=== PATIENT | female | born 1995 | race Caucasian/White ===

== ENCOUNTER 2022-12-11 09:43 | Emergency (ER) | payer SELFPAY ==
[~2022-12-11] VITALS: Ht 167.6 cm; Wt 62.1 kg
[2022-12-11 09:54] VITALS: BP 109/82
--- NOTE | 2022-12-11 10:05 | NUR ---
Dima ricci in [facility] - 12/11/22 at 1038 by AZIZA PATIENT AMBULATED TO BED 6.
--- NOTE | 2022-12-11 10:05 | NUR ---
PT WHEELCHAIR ASSISTED TO BED 6
--- NOTE | 2022-12-11 10:10 | NUR ---
89YO FEMALE PT C/O N/V-blood AND BURNING EPIGASTRIC PAIN XLASTNIGHT. REPORTS SUDDEN ONSET AND DIARRHEA/CHILLS XTODAY. PT CURRENTLY 6WEEKS , A1. JOSE 07/31/23 LMP 10/24/22. DENIES , FEVER , SOB OR VAGINAL BLEEDING. PT AAOX4, HOB POSITIONED PER COMFORT HX: DNIES NKA
--- NOTE | 2022-12-11 10:38 | NUR ---
DR. ALMONTE EVALUATING PATIENT AT BEDSIDE.
[2022-12-11] MEDS ORDERED: NACL 0.9% 1,000 ML IV ONE (10:40)
[2022-12-11] MEDS ORDERED: ONDANSETRON 4 MG/2 ML VIAL IVP ONE (10:40)
--- NOTE | 2022-12-11 11:08 | NUR ---
Additional dose of zofran pulled d/t broken vial.
[2022-12-11 11:19] LABS: BASOPHILS % (AUTO) 0.2 % (0.0-2.0); EOSINOPHILS % (AUTO) 0.1 % (0.0-4.0); HEMATOCRIT 41.4 % (36-48); HEMOGLOBIN 14.1 g/dL (12.0-16.0); LYMPHOCYTES # (AUTO) 1.4 K/uL (2.5-16.5); LYMPHOCYTES % (AUTO) 9.8 % (20.5-51.1); MEAN CORPUSCULAR HEMOGLOBIN 30 pg (27-31); MEAN CORPUSCULAR HGB CONC 34 g/dL (33-37); MEAN CORPUSCULAR VOLUME 88.3 fL (80-94); MONOCYTES # (AUTO) 0.5 K/uL (0.8-1.0); MONOCYTES % (AUTO) 3.2 % (1.7-9.3); NEUTROPHILS # (AUTO) 12.4 K/uL (1.8-7.7); NEUTROPHILS % (AUTO) 86.7 % (42.2-75.2); PLATELET COUNT (AUTO) 256 K/uL (140-450); RED BLOOD CELL COUNT(AUTO) 4.69 MIL/uL (4.20-5.40); RED CELL DISTRIBUTION WIDTH 12.9 % (11.6-13.7); WHITE BLOOD COUNT (AUTO) 14.3 K/uL (4.8-10.8)
--- NOTE | 2022-12-11 11:25 | NUR ---
pt w/ new nausea onset. MADE AWARE
[2022-12-11 11:47] LABS: ALBUMIN 4.7 g/dL (3.4-5.0); ANION GAP 15.9 (8-16); CARBON DIOXIDE 23.2 mmol/L (21-32); POTASSIUM 3.1 mmol/L (3.5-5.1); TOTAL BILIRUBIN 0.7 mg/dL (0.0-1.0)
[2022-12-11] MEDS ORDERED: PROCHLORPERAZINE 10 MG/2 ML VIAL IVP ONE (12:00)
[2022-12-11] MEDS ORDERED: COM25S RC (12:56)
[2022-12-11 13:31] VITALS: BP 110/57
--- NOTE | 2022-12-11 13:31 | NUR ---
Patient discharged with v/s stable. Written and verbal after care instructions given and explained. Patient alert, oriented and verbalized understanding of instructions. Ambulatory with steady gait. All questions addressed prior to discharge. ID band removed. Patient advised to follow up with PMD. Rx of COMPAZINE (SENT) given. Patient educated on indication of medication including possible reaction and side effects. Opportunity to ask questions provided and answered.
--- NOTE | 2022-12-11 13:32 | NUR ---
The patient's care was reviewed and supervised by Pema Hammond, RN, RN.
--- NOTE | 2022-12-11 13:41 | NUR ---
IV removed, catheter intact and site benign. Applied folded 4x4 gauze and tape to stop bleeding. BOYFRIEND WILL BE TAKING PT HOME AT THIS TIME
== END 2022-12-11 13:31 | disposition home or self-care (01) ==
LOC: MED 09:43
DX: O21.0 Mild hyperemesis gravidarum (principal); Z79.899 Other long term (current) drug therapy; Z3A.01 Less than 8 weeks gestation of pregnancy
CPT/HCPCS: 36415; 80053; 81025; 85025; 96361; 96374; 96375; 99284; J0780; J2405; J7030

== ENCOUNTER 2022-12-18 07:38 | Emergency (ER) | payer SELFPAY ==
[~2022-12-18] VITALS: Ht 15.2 cm; Wt 62.1 kg
[~2022-12-18 07:38] MED LIST: COM25S RC
[2022-12-18 07:43] VITALS: BP 139/67
[2022-12-18] MEDS ORDERED: ONDANSETRON 4 MG/2 ML VIAL IVP ONE ×2 (08:00→08:05)
[2022-12-18 08:41] LABS: BASOPHILS % (AUTO) 0.2 % (0.0-2.0); EOSINOPHILS % (AUTO) 0.1 % (0.0-4.0); HEMATOCRIT 38.9 % (36-48); HEMOGLOBIN 13.6 g/dL (12.0-16.0); LYMPHOCYTES # (AUTO) 1.8 K/uL (2.5-16.5); LYMPHOCYTES % (AUTO) 17.5 % (20.5-51.1); MEAN CORPUSCULAR HEMOGLOBIN 31 pg (27-31); MEAN CORPUSCULAR HGB CONC 35 g/dL (33-37); MEAN CORPUSCULAR VOLUME 88.1 fL (80-94); MONOCYTES # (AUTO) 0.6 K/uL (0.8-1.0); MONOCYTES % (AUTO) 5.4 % (1.7-9.3); NEUTROPHILS # (AUTO) 8.1 K/uL (1.8-7.7); NEUTROPHILS % (AUTO) 76.8 % (42.2-75.2); PLATELET COUNT (AUTO) 255 K/uL (140-450); RED BLOOD CELL COUNT(AUTO) 4.42 MIL/uL (4.20-5.40); RED CELL DISTRIBUTION WIDTH 12.9 % (11.6-13.7); WHITE BLOOD COUNT (AUTO) 10.5 K/uL (4.8-10.8)
[2022-12-18 09:33] LABS: ALBUMIN 4.5 g/dL (3.4-5.0); ANION GAP 13.2 (8-16); CARBON DIOXIDE 25.2 mmol/L (21-32); CREATININE 0.8 mg/dL (0.6-1.3); POTASSIUM 3.4 mmol/L (3.5-5.1); TOTAL BILIRUBIN 0.5 mg/dL (0.0-1.0)
[2022-12-18 10:34] LABS: APPEARANCE,URINE CLEAR (CLEAR); BILIRUBIN,URINE NEGATIVE (NEGATIVE); BLOOD, URINE 1+ (NEGATIVE); COLOR,URINE YELLOW (YELLOW); LEUKOCYTE ESTERASE ,URINE NEGATIVE (NEGATIVE); NITRITE, URINE NEGATIVE (NEGATIVE); PH,URINE 8.5 (5.0-9.0); UGLUCOSE NEGATIVE (NEGATIVE)
[2022-12-18 10:46] LABS: RBC,URINE 0-5 /HPF (0-5); WBC,URINE 0-5 /HPF (0-5)
[2022-12-18] MEDS ORDERED: DOXY1TCP PO (11:01)
[2022-12-18] MEDS ORDERED: ONDA-188 PO (11:01)
--- NOTE | 2022-12-18 11:02 | NUR ---
Pt able to tolerate PO. ERMD notified.
[2022-12-18 11:11] VITALS: BP 139/67
[2022-12-19] MEDS ORDERED: COM25S RC (04:18)
[2022-12-19] MEDS ORDERED: METO-485 PO (04:19)
== END 2022-12-18 11:11 | disposition home or self-care (01) ==
LOC: MED 07:38
DX: O26.891 Other specified pregnancy related conditions, first trimester (principal); Z3A.01 Less than 8 weeks gestation of pregnancy
CPT/HCPCS: 36415; 80053; 81001; 83690; 85025; 96374; 99283; J2405

== ENCOUNTER 2022-12-19 01:55 | Emergency (ER) | payer SELFPAY ==
[~2022-12-19] VITALS: Ht 167.6 cm; Wt 62.1 kg
[~2022-12-19 01:55] MED LIST changes: +DOXY1TCP PO; +ONDA-188 PO
[2022-12-19 02:01] VITALS: BP 135/91
--- NOTE | 2022-12-19 02:05 | NUR ---
PT TO BED 04.
--- NOTE | 2022-12-19 02:14 | NUR ---
BASIA PEDRAZA AT BEDSIDE.
[2022-12-19] MEDS ORDERED: ONDANSETRON 4 MG/2 ML VIAL IVP ONE (02:15)
[2022-12-19] MEDS ORDERED: NACL 0.9% 1,000 ML IV ONE (02:15)
--- NOTE | 2022-12-19 02:15 | NUR ---
27 YO F 8 WKS WITH C/C OF 8/10 EPIGASTRIC PAIN XYESTERDAY AFTERNOON. PT STATES SHE WAS SEEN HERE YESTERDAY FOR N/V, TOOK ZOFRAN WITH NO RELIEF. HX:GASTRITIS NKA
[2022-12-19] MEDS ORDERED: ACETAMINOPHEN EXTRA STRENGTH 500 MG TAB PO ONE (03:00)
[2022-12-19] MEDS ORDERED: PROCHLORPERAZINE 10 MG/2 ML VIAL IVP ONE (03:05)
[2022-12-19] MEDS ORDERED: MORPHINE SULFATE 4 MG/ML SYR IVP ONE (03:40)
[2022-12-19] MEDS ORDERED: PANTOPRAZOLE 40 MG INJ VIAL IVP ONE (03:50)
[2022-12-19] MEDS ORDERED: COM25S RC (04:18)
[2022-12-19] MEDS ORDERED: METO-485 PO (04:19)
[2022-12-19 05:30] VITALS: BP 135/91
--- NOTE | 2022-12-19 05:30 | NUR ---
Patient discharged with v/s stable. Written and verbal after care instructions given and explained. Patient alert, oriented and verbalized understanding of instructions. Ambulatory with steady gait. All questions addressed prior to discharge. ID band removed. Patient advised to follow up with PMD. Rx of KELLIE JOINER given. Patient educated on indication of medication including possible reaction and side effects. Opportunity to ask questions provided and answered.
== END 2022-12-19 05:30 | disposition home or self-care (01) ==
LOC: MED 01:55
DX: O21.1 Hyperemesis gravidarum with metabolic disturbance (principal); Z3A.08 8 weeks gestation of pregnancy; Z79.899 Other long term (current) drug therapy
CPT/HCPCS: 81025; 96361; 96374; 96375; 99284; C9113; J0780; J2270; J2405; J7030

== ENCOUNTER 2022-12-21 00:49 | Emergency (ER) | payer SELFPAY ==
[~2022-12-21] VITALS: Ht 152.4 cm; Wt 66.7 kg
[~2022-12-21 00:49] MED LIST changes: +METO-485 PO
[2022-12-21 00:55] VITALS: BP 130/86
--- NOTE | 2022-12-21 00:58 | NUR ---
TO LOBBY A/W BED AMBULATORY
--- NOTE | 2022-12-21 02:18 | NUR ---
PT TO BED
--- NOTE | 2022-12-21 02:23 | NUR ---
Patient received on bed lying comfortably and awake. Alert and oriented x4. No acute distress. Complained of epigastric pain with scale of 7/10 including nausea and vomiting. Respirations even and unlabored. Patient stated she is 8 weeks . Denies vaginal bleeding.
[2022-12-21] MEDS ORDERED: ALUMINUM HYD/MAG/SIMETHICONE 30 ML UDC PO ONE (02:40)
[2022-12-21] MEDS ORDERED: FAMOTIDINE 20 MG TAB PO ONE (02:40)
[2022-12-21] MEDS ORDERED: ONDANSETRON 4 MG ODT PO ONE (02:40)
[2022-12-21] MEDS ORDERED: FAMOTIDINE 20 MG/2 ML VIAL IVP ONE (03:50)
[2022-12-21] MEDS ORDERED: NACL 0.9% 1,000 ML IV ONE (03:50)
[2022-12-21] MEDS ORDERED: METOCLOPRAMIDE 10 MG/2 ML INJ VIAL IVP ONE (03:50)
[2022-12-21 04:13] LABS: BASOPHILS % (AUTO) 0.3 % (0.0-2.0); HEMATOCRIT 37.1 % (36-48); LYMPHOCYTES # (AUTO) 1.2 K/uL (2.5-16.5); LYMPHOCYTES % (AUTO) 11.9 % (20.5-51.1); MEAN CORPUSCULAR HEMOGLOBIN 31 pg (27-31); MEAN CORPUSCULAR HGB CONC 35 g/dL (33-37); MEAN CORPUSCULAR VOLUME 86.9 fL (80-94); MONOCYTES # (AUTO) 0.4 K/uL (0.8-1.0); MONOCYTES % (AUTO) 4.1 % (1.7-9.3); NEUTROPHILS # (AUTO) 8.2 K/uL (1.8-7.7); NEUTROPHILS % (AUTO) 83.7 % (42.2-75.2); PLATELET COUNT (AUTO) 265 K/uL (140-450); RED BLOOD CELL COUNT(AUTO) 4.27 MIL/uL (4.20-5.40); WHITE BLOOD COUNT (AUTO) 9.8 K/uL (4.8-10.8)
[2022-12-21 04:32] LABS: ALBUMIN 4.3 g/dL (3.4-5.0); ANION GAP 14.5 (8-16); CARBON DIOXIDE 23.6 mmol/L (21-32); CREATININE 0.7 mg/dL (0.6-1.3); POTASSIUM 3.1 mmol/L (3.5-5.1); TOTAL BILIRUBIN 0.6 mg/dL (0.0-1.0)
[2022-12-21 04:52] LABS: APPEARANCE,URINE CLEAR (CLEAR); BILIRUBIN,URINE NEGATIVE (NEGATIVE); BLOOD, URINE 2+ (NEGATIVE); COLOR,URINE YELLOW (YELLOW); LEUKOCYTE ESTERASE ,URINE NEGATIVE (NEGATIVE); NITRITE, URINE NEGATIVE (NEGATIVE); UGLUCOSE NEGATIVE (NEGATIVE)
[2022-12-21 05:11] LABS: RBC,URINE 0-5 /HPF (0-5); WBC,URINE 0-5 /HPF (0-5)
[2022-12-21] MEDS ORDERED: FAMO-90 PO (05:48)
[2022-12-21 05:57] VITALS: BP 127/79
== END 2022-12-21 05:57 | disposition home or self-care (01) ==
LOC: MED 00:49
DX: O21.0 Mild hyperemesis gravidarum (principal); O99.281 Endocrine, nutritional and metabolic diseases complicating pregnancy, first trimester; E87.6 Hypokalemia; O99.611 Diseases of the digestive system complicating pregnancy, first trimester; K29.70 Gastritis, unspecified, without bleeding; Z20.822 Contact with and (suspected) exposure to COVID-19; Z3A.08 8 weeks gestation of pregnancy; Z79.899 Other long term (current) drug therapy
CPT/HCPCS: 36415; 80053; 81001; 81025; 83690; 85025; 87426; 96361; 96374; 96375; 99284; J2765; J3490; J7030; Q0162

== ENCOUNTER 2022-12-23 15:07 | Emergency (ER) | payer SELFPAY ==
[~2022-12-23] VITALS: Ht 167.6 cm; Wt 60.3 kg
[~2022-12-23 15:07] MED LIST changes: +FAMO-90 PO
[2022-12-23 15:25] VITALS: BP 120/80
== END 2022-12-23 17:40 | disposition left against medical advice (07) ==
LOC: MED 15:07
DX: O26.891 Other specified pregnancy related conditions, first trimester (principal); R10.9 Unspecified abdominal pain; Z53.21 Procedure and treatment not carried out due to patient leaving prior to being seen by health care provider; Z3A.08 8 weeks gestation of pregnancy
CPT/HCPCS: 99281